=== PATIENT | male | born 1960 ===

== ENCOUNTER 2023-05-20 14:56 | Outpatient (CLI) | payer BC, SELFPAY ==
--- NOTE | ~2023-05-20 | XR_ITS ---
EXAMINATION: XR shoulder LT min 2V DATE: 05/20/2023 15:26 INDICATION: Left shoulder pain. TECHNIQUE: 4 views of left shoulder were obtained. COMPARISON: None. FINDINGS: Bone alignment is normal. No fracture. The glenohumeral joint is normal. There is severe ac romioclavicular joint osteoarthritis. The lung volumes are small with mild atelectasis at the lung ba ses. IMPRESSION: 1. Severe osteoarthritis of left acromioclavicular joint. Reviewed, dictated and finalized at location A.
--- NOTE | ~2023-05-20 | XR_ITS ---
EXAMINATION: XR wrist LT min 3V DATE: 05/20/2023 15:26 INDICATION: Left wrist swelling. TECHNIQUE: 4 views of left wrist were obtained. COMPARISON: None. FINDINGS: Bone alignment is normal. No fracture. There is mild osteoarthritis of second and third met acarpophalangeal joints. Vascular calcifications are noted. IMPRESSION: 1. Mild polyarticular osteoarthritis. Reviewed, dictated and finalized at location A.
== END 2023-05-20 14:57 | disposition home or self-care (01) ==
PROVIDERS: PCP Physician Assistant; Visit Provider Physician Assistant
DX: M25.432 Effusion, left wrist (principal); M19.012 Primary osteoarthritis, left shoulder; M19.032 Primary osteoarthritis, left wrist
CPT/HCPCS: 73030; 73110

== ENCOUNTER 2023-11-29 21:27 | Emergency (ER) | payer BC, SELFPAY ==
[2023-11-29] VITALS (9 sets, daily range): BP systolic 156–176; BP diastolic 59–83; PULSE 73–79; RESP 15; TEMP 37.3; O2SAT 98–100
--- NOTE | ~2023-11-29 | CT_ITS ---
EXAMINATION: CT BRAIN W/O DATE: 11/30/2023 00:13 INDICATION: Head injury. TECHNIQUE: Computed tomography (CT) of the head was performed without intravenous contrast. The dose- length product was 681.00 mGy-cm. Automated exposure control and iterative reconstruction technique w ere employed. COMPARISON: No prior studies for comparison. FINDINGS: Normal brain parenchymal volume for age. Normal wayne-white differentiation. No acute intrac ranial hemorrhage, infarction, mass or mass effect. There are scattered mild periventricular and subc ortical white matter changes, most likely related to small vessel ischemic disease (microangiopathy). No ventriculomegaly or midline shift. Midline sagittal images demonstrate a normal corpus callosum, c raniovertebral junction and sella turcica. Basilar cisterns are patent. There is mild mucosal thickening of the right maxillary and the ethmoid sinuses. There is intracrania l atherosclerosis. There is intracranial atherosclerosis. IMPRESSION: 1. No acute intracranial abnormality. Reviewed, dictated and finalized at location A. 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
--- NOTE | ~2023-11-29 | CT_ITS ---
EXAMINATION: CT facial & cervical spine wo DATE: 11/30/2023 00:14 INDICATION: Facial and neck pain after fall. Abrasion to the right side of the face. TECHNIQUE: Computed tomography (CT) of the maxillofacial region and cervical spine was performed with out intravenous contrast. The dose-length product was 433.75 mGy-cm. Automated exposure control and i terative reconstruction technique were employed. COMPARISON: None FINDINGS: MAXILLOFACIAL CT: Right periorbital/frontal scalp swelling. Nondisplaced nasal fractures. Mild right maxillary and ethm oid mucosal thickening. No other facial fracture. There is nasal septal deviation. 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 CERVICAL SPINE CT: Vertebral body heights are maintained. There is mild multilevel uncinate and facet hypertrophy with d egenerative anterolisthesis at C4-5. Odontoid process within normal limits. Craniovertebral junction is normal. No evidence for perched facet. There is carotid atherosclerosis. Lung apices are normal. IMPRESSION: 1. No acute abnormality of the cervical spine. 2: Moderate cervical spondylosis. Reviewed, dictated and finalized at location A. 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
[2023-11-30] VITALS (11 sets, daily range): BP systolic 157–159; BP diastolic 66–69; PULSE 69–73; RESP 16; O2SAT 95–100
[2023-11-30] MEDS: TETANUS,DIPHTHERIA,AC PERTUSSIS ADULT (0.5 ML) BOOSTRIX IM (00:18)
--- NOTE | 2023-11-30 00:56 | ED.GENADULT ---
HPI - General Adult General Chief complaint: Fall Stated complaint: fall Time Seen by Provider: 11/29/23 23:32 History of Present Illness HPI narrative: Patient is a 63-year-old gentleman who presents emergency department with chief complaint of facial injury. The patient reports that he was outside walking the dog and tripped and fell patient states he landed on his face reports abrasion of the right cheek and had bleeding from his nose. Patient is not on blood thinners reports no loss of consciousness reports that his only area that he is having a discomfort Is the right side of his face. Related Data Allergies Allergy/AdvReac Type Severity Reaction Status Date / Time hydrocodone Allergy Intermediate HIVES,RASH Verified 08/12/19 08:10 Penicillins Allergy Intermediate HIVES,RASH Verified 08/12/19 08:10 Review of Systems Review of Systems: A 10 system review of systems was completed on the patient and is negative except for what is stated in the HPI. Nursing and ancillary documentation was reviewed. Exam Narrative: GENERAL: Well-appearing, well-nourished, and in no acute distress. HEAD: Normocephalic, abrasion present over right cheek area. Extraocular motions are intact EYES: PERRLA and EOMI. ENT: Nares clear, no rhinorrhea or epistaxis. Mucous membranes moist. NECK: Supple. CHEST: Clear to auscultation. No respiratory distress. HEART: Regular rate and rhythm. No murmur heard. Normal peripheral pulses. ABDOMEN: Soft, nontender, nondistended, normal active bowel sounds. EXTREMITIES: Normal range of motion. No edema. SKIN: Warm, dry, no rash. NEURO: No focal deficits. Alert and oriented x3 GCS 15,. PSYCH: Normal mood and affect. Course Vital Signs Vital signs: Vital Signs Temperature 37.3 C 11/29/23 21:31 Pulse Rate 79 11/29/23 21:31 Respiratory Rate 15 11/29/23 21:31 Blood Pressure 159/59 H 11/29/23 21:31 Pulse Oximetry 100 11/29/23 21:31 Oxygen Delivery Room Air 11/29/23 21:31 Temperature 37.3 C 11/29/23 21:31 Pulse Rate 73 11/29/23 23:18 Respiratory Rate 15 11/29/23 23:18 Blood Pressure 167/73 H 11/29/23 23:15 Pulse Oximetry 100 11/29/23 23:18 Oxygen Delivery Room Air 11/29/23 21:31 Medical Decision Making MDM Narrative Medical decision making narrative: differential diagnosis includes facial fracture, intracranial injury, nasal bone fracture tetanus was updated the wounds were cleaned and dressed no suturing was required CT head showed no acute abnormality CT C-spine showed no fracture CT facial bones showed a minimal nasal bone fracture Vital Signs Vital Signs: Vital Signs Temperature 37.3 C 11/29/23 21:31 Pulse Rate 79 11/29/23 21:31 Respiratory Rate 15 11/29/23 21:31 Blood Pressure 159/59 H 11/29/23 21:31 Pulse Oximetry 100 11/29/23 21:31 Oxygen Delivery Room Air 11/29/23 21:31 Temperature 37.3 C 11/29/23 21:31 Pulse Rate 73 11/29/23 23:18 Respiratory Rate 15 11/29/23 23:18 Blood Pressure 167/73 H 11/29/23 23:15 Pulse Oximetry 100 11/29/23 23:18 Oxygen Delivery Room Air 11/29/23 21:31 Discharge Plan Discharge Clinical Impression: Closed fracture nasal bone, Abrasion of face, Fall from ground level Patient Disposition: Home, Self-Care Condition: Stable Instructions: Antibiotic Form, Nasal Fracture (ED), Head Injury (ED), Abrasion (ED) Follow-up/Referrals: Jonas,GILBERT Rubalcava [Primary Care Provider] - Time of Disposition: 00:59
== END 2023-11-30 01:26 | disposition home or self-care (01) ==
PROVIDERS: Emergency Provider Emergency Medicine; PCP Physician Assistant
DX: S02.2XXA Fracture of nasal bones, initial encounter for closed fracture (principal); S00.81XA Abrasion of other part of head, initial encounter; Z23 Encounter for immunization; W01.0XXA Fall on same level from slipping, tripping and stumbling without subsequent striking against object, initial encounter; Y93.K1 Activity, walking an animal
CPT/HCPCS: 70450; 70486; 72125; 90471; 90715; 99284